=== PATIENT | male | born 1995 | race Caucasian/White ===

== ENCOUNTER → 2019-01-28 11:49 | Outpatient (CLI) | payer OTHER, SELFPAY ==
[2019-01-28 11:52] LABS: Adenovirus F 40/41, stool Not Detected (NotDetected); Astrovirus Not Detected (NotDetected); Campylobacter Not Detected (NotDetected); Clostridium Difficile A/B, PCR Not Detected (NotDetected); Cryptosporidium Not Detected (NotDetected); Cyclospora Cayetanesis Not Detected (NotDetected); Entamoeba histolytica Not Detected (NotDetected); Enteroaggregative E coli Not Detected (NotDetected); Enteropathogenic E coli Not Detected (NotDetected); Enterotoxigenic E coli Not Detected (NotDetected); Giardia lamblia Not Detected (NotDetected); Norovirus Not Detected (NotDetected); Plesimonas Shigalloides, PCR Not Detected (NotDetected); Rotavirus A Not Detected (NotDetected); Salmonella, PCR Not Detected (NotDetected); Sapovirus Not Detected (NotDetected); Shiga-like toxin E coli Not Detected (NotDetected); Shigella Enterovasive E coli Not Detected (NotDetected); Vibrio Cholerae Not Detected (NotDetected); Vibrio, PCR Not Detected (NotDetected); Yersinia Entercolitica, PCR Not Detected (NotDetected)
[2019-01-28 12:27] LABS: Basophils % 0.5 % (0.1-2.0); Eosinophils # 0.3 K/mm3 (0.0-0.4); Eosinophils % 4.2 % (0.1-12.0); Hematocrit 44.7 % (42.0-52.0); Hemoglobin 15.3 g/dL (14.1-18.0); Lymphocytes # 2.6 K/mm3 (0.7-4.5); Lymphocytes % 37.3 % (10-50); Mean Corpuscular HGB Conc 34.1 g/dL (31.8-35.4); Mean Corpuscular Hemoglobin 28.9 pg (27.0-31.2); Mean Corpuscular Volume 84.8 fl (80-94); Mean Platelet Volume 6.7 fl (7.4-10.4); Monocytes # 0.3 K/mm3 (0.1-1.0); Monocytes % 4.5 % (1.7-9.3); Neutrophils # 3.7 K/mm3 (1.8-7.8); Neutrophils % 53.5 % (37.0-80.0); Platelet Count 326 K/mm3 (142-424); Red Blood Count 5.28 M/mm3 (4.60-6.20); Red Cell Distribution Width 13.1 % (11.5-17.5); White Blood Count 6.9 K/mm3 (4.8-10.8)
[2019-01-28 12:57] LABS: Occult Blood,Stool Negative (Negative)
[2019-01-28 13:45] LABS: Alanine Aminotransferase 45 U/L (12-78); Albumin Level 3.6 gm/dL (3.4-5.0); Alkaline Phosphatase 58 U/L (46-116); Anion Gap 14.9 mEq/L (5-15); Aspartate Amino Transferase 23 U/L (15-37); Bilirubin,Total 0.4 mg/dL (0.2-1.0); Blood Urea Nitrogen 8 mg/dL (7-18); Calcium 9.4 mg/dL (8.5-10.1); Carbon Dioxide 24 mmol/L (21.0-32.0); Chloride 104 mmol/L (98-107); Chol/HDL Ratio 4.3 (1-3.5); Cholesterol 180 mg/dL (140-200); Estimated Glomerular Filt Rate 167 ml/min (>60); Free T4 (Free Thyroxine) 1.28 ng/dl (0.76-1.46); GFR (African American) 202 ML/MIN (>60); Globulin 3.5 gm/dl (1.3-3.2); Glucose 94 mg/dL (74-106); HDL Cholesterol 42 mg/dL (27-67); LDL Cholesterol 108 mg/dL (0-130); Potassium 3.9 mmoL/L (3.5-5.1); Sodium 139 mmol/L (136-145); Thyroid Stimulating Hormone 1.74 uIU/ml (0.358-3.740); Total Protein,Serum 7.1 gm/dL (6.4-8.2); Triglycerides 152 mg/dL (30-200); VLDL Cholesterol 30 mg/dL (0-40)
[2019-01-28 15:46] LABS: Hemoglobin A1C 5.1 % (0.0-7.0)
[2019-01-29 12:38] LABS: Vitamin D 25 Hydroxy 21.9 ng/mL (30.0-100.0)
== END ==
PROVIDERS: Visit Provider Nurse Practitioner Family
DX: D72.829 Elevated white blood cell count, unspecified (principal); R53.83 Other fatigue; E11.9 Type 2 diabetes mellitus without complications; R19.7 Diarrhea, unspecified; E03.9 Hypothyroidism, unspecified; E55.9 Vitamin D deficiency, unspecified
CPT/HCPCS: 36415; 80053; 80061; 82272; 82652; 83036; 84439; 84443; 85025; 87507; G0328

== ENCOUNTER → 2021-07-18 16:00 | Outpatient (CLI) | payer MEDICAID, SELFPAY | PROVIDERS: Visit Provider Nurse Practitioner Family | DX: J02.9 Acute pharyngitis, unspecified (principal) ==

== ENCOUNTER → 2022-01-27 09:36 | Outpatient (CLI) | payer MEDICAID, SELFPAY ==
[2022-01-26 18:39] LABS: Coronavirus 19, PCR Not Detected (NotDetected); Influenza A, PCR Not Detected (NotDetected); Influenza B, PCR Not Detected (NotDetected)
== END ==
PROVIDERS: PCP Emergency Medicine; Visit Provider Emergency Medicine
DX: Z20.822 Contact with and (suspected) exposure to COVID-19 (principal); R52 Pain, unspecified
CPT/HCPCS: C9803; U0003; U0005

== ENCOUNTER 2024-08-26 12:06 | Day surgery (SDC) | payer MEDICAID, SELFPAY ==
[2024-08-24 17:19] VITALS: BMI 69.0
[2024-08-26 12:44] VITALS: BP 130/83; PULSE 81; RESP 18; TEMP 36.4; O2SAT 99
--- NOTE | 2024-08-26 12:46 | EXP.HP ---
History of Present Illness *Admission Date: 08/26/24 *Reason for visit:: Lower abdominal pain, diarrhea and gassiness *History of present illness: Mr. Bashir is a 29-year-old gentleman who is here for diagnostic upper endoscopy secondary to abdominal pain and diarrhea. The examination is deemed medically necessary for EGD. The patient has been seen, interviewed and examined prior to the procedure by both myself and the anesthesia provider. [facility] Disclaimer: The information contained in this section may have been updated after the patient was seen, as this information can be updated by other users. Medical History (Updated 08/26/24 @ 13:56 by Allan Olvera II, MD) Viral upper respiratory illness Pharyngitis Pleurisy Absence of lower extremity Absence of upper extremity Absence of extremity Wheelchair dependence Surgical History No significant past surgical history Family History Other No significant family history Social History (Updated 08/26/24 @ 12:52 by Margarita Nielsen RN) Smoking Status: Current every day smoker tobacco type: e-cigarettes alcohol intake: former substance use type: denies use current occupational status: unemployed Travel in the last 8 weeks: None housing: house caffeine: Yes Have you lived/traveled outside [place] in past 30 days?: No Contact w/someone who lives/traveled outside [place] past 30 days?: No Exposure to someone with infectious disease in past 14 days?: No Do you have a fever (greater than 100.4 F or 38 C)?: No Have you tested positive for COVID-19: No Exposed to someone with COVID-19 in past 14 days?: No Do you have a sore throat?: No Do you have a cough?: No Do you have any weakness?: No Are you experiencing any nausea/vomitting?: No Do you have any diarrhea?: No Are you experiencing any unusual bleeding?: No Do you have any muscle aches/pain?: No Do you have any abdominal pain?: No Are you experiencing loss of taste or smell?: No Other Medical History Have you received the Pneumonia Vaccine: No Review of Systems Review of Systems Review of systems (narrative): Negative *Cardiovascular Comments: Negative *Gastrointestinal Comments: Negative *Genitourinary Comments: Negative *Musculoskeletal Comments: Negative *Neurologic Comments: Negative Meds Home Medications and Allergies Home Medications ?Medication ?Instructions ?Recorded ?Confirmed ?Type omeprazole 20 mg capsule,delayed 20 mg PO DAILY #30 caps 06/18/24 08/26/24 Rx release sucralfate 1 gram tablet (Carafate) 1 g PO TID PRN stomach ulcer #90 06/18/24 06/18/24 Rx tabs sumatriptan succinate 50 mg tablet 50 mg PO DAILY 08/24/24 08/26/24 History trazodone 100 mg tablet 100 mg PO HS 08/24/24 08/26/24 History New Prescriptions to Start Prescriptions: Allergies Allergy/AdvReac Type Severity Reaction Status Date / Time amoxicillin (From Augmentin) Allergy Severe Hives Verified 08/26/24 12:42 azithromycin (From Zithromax) Allergy Severe Hives Verified 08/26/24 12:42 clavulanic acid (From Allergy Severe Hives Verified 08/26/24 12:42 Augmentin) Exam Data for Last 24 hours I & O for Last 24 hours: Intake & Output 08/23/24 08/24/24 08/25/24 08/26/24 23:59 23:59 23:59 23:59 Weight 165 lb *Routine HEENT Exam Head: Present normocephalic Eye: Present EOMI and PERRL ENT: Present mucous membranes moist *Routine Neck Exam Neck: Present supple *Routine Respiratory Exam Respiratory: Present CTA bilaterally *Routine Cardiovascular Exam Cardiovascular: Present RRR *Routine Abdominal Exam Abdominal: Present soft and normoactive bowel sounds; Absent tenderness *Routine Rectal Exam Rectal:: deferred *Routine Genitalia Exam Genitalia:: deferred *Routine Extremities Exam Extremities: Absent cyanosis, clubbing or edema *Routine Skin Exam Skin: Present warm; Absent rash *Routine Neurological Exam Neurological: Present alert and oriented X3 Assessment and Plan *Assessment and plan (1) Abdominal pain: Status: Acute Category: Medical Code(s): R10.9 - Unspecified abdominal pain (2) Diarrhea: Status: Acute Category: Medical Code(s): R19.7 - Diarrhea, unspecified Plan A/P: 1. Abdominal pain and diarrhea is the preprocedural diagnosis. The patient will be anesthetized/sedated using MAC sedation. The patient has been seen and examined. Cardiac and lung assessment prior to the examination is stable. Proceed with planned diagnostic EGD
[2024-08-26] MEDS: LACTATED RINGERS 1000ML 1,000 ML 50 ML IV (12:57)
--- NOTE | 2024-08-26 13:19 | EXP.ANES.CKL ---
[facility] Disclaimer: The information contained in this section may have been updated after the patient was seen, as this information can be updated by other users. Medical History Viral upper respiratory illness Pharyngitis Pleurisy Absence of lower extremity Absence of upper extremity Absence of extremity Wheelchair dependence Surgical History No significant past surgical history Family History Other No significant family history Social History (Updated 08/26/24 @ 12:52 by Margarita Nielsen RN) Smoking Status: Current every day smoker tobacco type: e-cigarettes alcohol intake: former substance use type: denies use current occupational status: unemployed Travel in the last 8 weeks: None housing: house caffeine: Yes Have you lived/traveled outside [place] in past 30 days?: No Contact w/someone who lives/traveled outside [place] past 30 days?: No Exposure to someone with infectious disease in past 14 days?: No Do you have a fever (greater than 100.4 F or 38 C)?: No Have you tested positive for COVID-19: No Exposed to someone with COVID-19 in past 14 days?: No Do you have a sore throat?: No Do you have a cough?: No Do you have any weakness?: No Are you experiencing any nausea/vomitting?: No Do you have any diarrhea?: No Are you experiencing any unusual bleeding?: No Do you have any muscle aches/pain?: No Do you have any abdominal pain?: No Are you experiencing loss of taste or smell?: No [facility] Anesthesia Checklist Patient Identification Patient Identification: Verbal (Name & ) Structural Data Admitted From: Home Planned Operative Procedure/s: egd Consent for Planned Operative Procedure(s) Verified: Yes NPO Status Verified Time NPO: 00:00 Airway Assessment Mallampati Score:: Class II C-Spine Mobility Assessed: Yes TMJ Mobility Assessed: Yes Dentition: Good Dentition Neurological Assessment Level of Consciousness: Awake, Alert and Appropriate Anesthesia Plan Anesthesia Risk discussed: Yes Anesthesia Plan: Verified ASA Class: III Anesthesia Type: MAC
[2024-08-26 13:55] VITALS: O2SAT 99
--- NOTE | 2024-08-26 13:56 | [facility]H.PROCNOTE ---
[facility] Procedure Note Date: 08/26/24 Time: 14:01 Procedure Note:: Upper Endoscopy Procedure Report: Esophagogastroduodenoscopy with cold biopsies Endoscopost: Allan Olvera II, MD Referring Physician: PAULO Lombardo Date of Procedure: August 26, 2024 Equipment: Olympus GIF 190 standard upper endoscope Sedation: MAC sedation Indications: Mr. Bashir is a 29-year-old gentleman with long-term crampy abdominal pain especially in the lower abdomen and diarrhea. He reports moderate gassiness. He reports no bloating, heartburn, reflux or dysphagia. He reports no weight loss. He has had no melena or bright red rectal bleeding. This is his first upper endoscopy. Procedure: Prior to the procedure, a history and physical exam was performed, and patient's medications and allergies were reviewed. The risks, benefits and alternatives of the sedation and procedure were discussed with the patient. All questions were answered and informed consent was obtained. The patient was brought to the procedure room. Patient identification and proposed procedure were verified by the physician and the nurse. The patient was placed in a left lateral decubitus position and the scope was passed under direct vision. Throughout the procedure, the patient's blood pressure, pulse, and oxygen saturations were monitored continuously. The upper GI endoscopy was accomplished without difficulty. The patient tolerated the procedure well. Findings: The scope was passed directly into the upper esophagus and advanced to the third portion of the duodenum. The post bulbar duodenum and duodenal bulb were normal with normal mucosa and conniventes. Cold biopsies were taken from the first portion of duodenum and duodenal bulb to rule out celiac disease. The scope was withdrawn through a normal duodenal bulb and pylorus into the stomach. There was very minimal to mild linear reactive gastropathy of the prepyloric antrum. The remainder of the body and fundus of the stomach were normal. Upon retroflexion there was no hiatal hernia. Cold biopsies were taken from the antrum. The scope was then withdrawn into the esophagus. There was no evidence of reflux esophagitis or Patterson's. The remainder of the esophageal mucosa was normal. Impression: 1. Very mild linear reactive prepyloric gastropathy Plan: I will follow-up the biopsies. There was no clear etiology for the patient's lower abdominal pain and diarrhea. I am going to send stool testing for calprotectin and would consider diagnostic colonoscopy at this point. I will place the patient on dicyclomine.
[2024-08-26 14:03] VITALS: BP 104/60; PULSE 87; RESP 16; TEMP 36.1; O2SAT 97
[2024-08-26 14:13] VITALS: BP 106/67; PULSE 86; RESP 16; O2SAT 100
[2024-08-26 14:23] VITALS: PULSE 88; RESP 18; O2SAT 100
== END 2024-08-26 14:30 | disposition home or self-care (01) ==
PROVIDERS: PCP Nurse Practitioner Family; Visit Provider Internal Medicine Gastroenterology
PROC: 0DJ08ZZ Inspection of Upper Intestinal Tract, Via Natural or Artificial Opening Endoscopic (ICD-10-PCS; CPT 43239; principal; 2024-08-26 12:30)
DX: R19.7 Diarrhea, unspecified (principal); K31.9 Disease of stomach and duodenum, unspecified; R10.9 Unspecified abdominal pain
CPT/HCPCS: 43239; J7120